=== PATIENT | male | born 1970 | race Caucasian/White ===

== ENCOUNTER 2016-09-02 00:39 | Inpatient (IN) | payer SELFPAY ==
[~2016-09-02] VITALS: Ht 167.6 cm; Wt 83.9 kg
[2016-09-02 01:17] LABS: Hematocrit 43.8 % (41.0-53.0); Hemoglobin 14.4 g/dL (13.5-17.5); Mean Platelet Volume 7.4 fL (7.4-10.4); Platelet Count (auto) 303 10^3/uL (140-450); Red Cell Distribution Width 13.5 % (11.6-16.0); SUSPECT VIEW TRANSMISSION; White Blood Cell 8.9 10^3/uL (4.4-10.8)
[2016-09-02 01:39] LABS: Calcium 9.1 mg/dL (8.5-10.1); Potassium 3.9 mmol/L (3.5-5.1)
[2016-09-02 01:42] LABS: Albumin 3.6 g/dL (3.4-5.0); BUN/Creatinine Ratio 11.2; Metamyelocytes % 0; Myelocytes % 0; Promyelocytes % 0; Reactive Lymphocytes 0
[2016-09-02 01:44] LABS: Bilirubin, Total 0.8 mg/dL (0.2-1.0); Total Protein 7.3 g/dL (6.4-8.2)
[2016-09-02 02:18] LABS: Platelet Estimate Adequate; RBC Morphology Normal
[2016-09-02] MEDS ORDERED: metroNIDAZOLE 500MG/100ML 100 ML IV ONE (06:00)
[2016-09-02] MEDS ORDERED: PIPERACILLIN-TAZOB 3.375GM 100 ML IV ONE (06:00)
[2016-09-02] MEDS ORDERED: SODIUM CHLORIDE 0.9% 1,000 ML IV ONE ×2 (06:00→06:30)
[2016-09-02] MEDS ORDERED: MORPHINE SULF INJ 2 MG/ML SYRINGE 1ML IV PRN (06:30)
[2016-09-02] MEDS ORDERED: ACETAMINOPHEN 325 MG TAB PO PRN (06:30)
[2016-09-02] MEDS ORDERED: NITROGLYCERIN 0.4 MG SL TAB SL PRN (06:30)
[2016-09-02 08:00] LABS: INR 1.04 (0.9-1.15); Partial Thromboplastin Time 27.5 sec (22.64-33.71); Prothrombin Time 11.3 sec (9.37-12.3)
[2016-09-02 08:14] LABS: Urine RBC None Seen /hpf (0 - 3)
[2016-09-02 08:40] LABS: Urine Bilirubin Negative (Negative); Urine Blood Negative /uL (Negative); Urine Color Yellow (Yellow); Urine Glucose Normal (Normal); Urine Ketone Negative (Negative); Urine Nitrite Negative (Negative); Urine Squamous Epithelial Cell FEW /hpf (<5); Urine Urobilinogen Normal (Negative)
[2016-09-02 09:00] VITALS: BP 144/66
[2016-09-02] MEDS: MORPHINE SULF INJ 2 MG/ML SYRINGE 1ML IV PRN ×2 (09:06→21:31)
[2016-09-02] MEDS: PANTOPRAZOLE SODIUM 40 MG/10 ML VIAL IV SCH (09:07)
[2016-09-02] MEDS: SODIUM CHLORIDE 0.9% 1,000 ML IV SCH ×3 (09:07→21:03)
[2016-09-02 09:42] VITALS: BP 114/66
[2016-09-02] MEDS: PIPERACILLIN-TAZOB 3.375GM 100 ML IV SCH ×3 (11:43→23:24)
[2016-09-02 13:00] VITALS: BP 117/66
[2016-09-02] MEDS: metroNIDAZOLE 500MG/100ML 100 ML IV SCH ×2 (14:00→21:31)
[2016-09-02] MEDS ORDERED: POVIDONE IODINE 10 % TOPICAL OINT 30GM TOP ONE (15:21)
[2016-09-02] MEDS ORDERED: SUCCINYLCHOLINE CHLORIDE 20 MG/ML 10ML VIAL IV ONE (15:32)
[2016-09-02] MEDS ORDERED: NEOSTIGMINE 1 MG/ML INJ (10mg/10ML VIAL) IV ONE (15:32)
[2016-09-02] MEDS ORDERED: GLYCOPYRROLATE 0.2 MG/ML 1ML VIAL IV ONE (15:32)
[2016-09-02] MEDS ORDERED: ROCURONIUM 10MG/ML 10ML VIAL IV ONE (15:38)
[2016-09-02] MEDS ORDERED: PROPOFOL 10 MG/ML 20 ML IV ONE (15:38)
[2016-09-02] MEDS ORDERED: fentaNYL CITRATE 5 ML ONE (15:38)
[2016-09-02] MEDS ORDERED: MIDAZOLAM HCL 1MG/1ML-2 ML VIAL ONE (15:38)
[2016-09-02] MEDS ORDERED: hydrALAZINE HCL 20 MG/ML VL IV PRN (17:15)
[2016-09-02] MEDS ORDERED: ONDANSETRON HCL 4 MG/2 ML VIAL IV ONE (17:15)
[2016-09-02] MEDS ORDERED: HYDROmorphone HCL 2 MG/ML VL IV PRN (17:15)
[2016-09-02] MEDS ORDERED: ePHEDrine SULFATE 50 MG/ML AMP IV PRN (17:15)
[2016-09-02 18:35] VITALS: BP 125/62
[2016-09-02 20:00] VITALS: BP 119/77
[2016-09-02 21:49] VITALS: BP 119/71
[2016-09-03] MEDS: MORPHINE SULF INJ 2 MG/ML SYRINGE 1ML IV PRN ×4 (04:04→20:15)
[2016-09-03] MEDS: metroNIDAZOLE 500MG/100ML 100 ML IV SCH (05:19)
[2016-09-03 05:33] VITALS: BP 115/69
[2016-09-03] MEDS: PIPERACILLIN-TAZOB 3.375GM 100 ML IV SCH ×3 (06:53→17:32)
[2016-09-03] MEDS: HYDROcodone-ACET 5/325MG TAB PO PRN ×2 (07:24→17:32)
[2016-09-03 08:01] LABS: Basophils # (auto) 0 uL; Basophils % (auto) 0.3 % (0.0-2.0); Eosinophils # (auto) 0 uL; Eosinophils % (auto) 0.3 % (0.0-7.0); Hematocrit 38.9 % (41.0-53.0); Hemoglobin 13.1 g/dL (13.5-17.5); Lymphocytes # (auto) 0.9 uL; Lymphocytes % (auto) 10.1 % (10.0-50.0); Mean Corpuscular Hemoglobin 33.5 pg (28.0-32.0); Mean Corpuscular Hgb Conc. 33.7 g/dL (32.0-36.0); Mean Corpuscular Volume 99.6 fL (80.0-100.0); Mean Platelet Volume 7.6 fL (7.4-10.4); Monocytes # (auto) 0.4 uL; Monocytes % (auto) 4.9 % (0.0-12.0); Neutrophils # (auto) 7.2 uL; Neutrophils % (auto) 84.4 % (37.0-80.0); Platelet Count (auto) 290 10^3/uL (140-450); Red Cell Distribution Width 14.6 % (11.6-16.0); White Blood Cell 8.6 10^3/uL (4.4-10.8)
[2016-09-03 08:52] VITALS: BP 126/77
[2016-09-03 08:53] LABS: Albumin 2.6 g/dL (3.4-5.0); BUN/Creatinine Ratio 10.6; Bilirubin, Total 1.3 mg/dL (0.2-1.0); Calcium 8.2 mg/dL (8.5-10.1); Potassium 3.7 mmol/L (3.5-5.1); Total Protein 6.3 g/dL (6.4-8.2)
[2016-09-03] MEDS: PANTOPRAZOLE SODIUM 40 MG/10 ML VIAL IV SCH (09:47)
[2016-09-03 12:47] VITALS: BP 124/69
[2016-09-03] MEDS: SODIUM CHLORIDE 0.9% 1,000 ML IV SCH ×2 (12:50→20:16)
[2016-09-03] MEDS ORDERED: NICOTINE 21MG/24 HR TOPICAL PATCH TD ONE (13:45)
[2016-09-03 17:00] VITALS: BP 117/69
[2016-09-03] MEDS: ONDANSETRON HCL 4 MG/2 ML VIAL IV PRN (20:16)
[2016-09-03 22:00] VITALS: BP 108/58
[2016-09-04] MEDS: PIPERACILLIN-TAZOB 3.375GM 100 ML IV SCH ×5 (00:16→23:27)
[2016-09-04] MEDS: MORPHINE SULF INJ 2 MG/ML SYRINGE 1ML IV PRN ×6 (00:16→21:18)
[2016-09-04] MEDS: ONDANSETRON HCL 4 MG/2 ML VIAL IV PRN ×3 (00:17→21:18)
[2016-09-04 05:34] VITALS: BP 123/66
[2016-09-04 07:43] LABS: Basophils # (auto) 0 uL; Basophils % (auto) 0.2 % (0.0-2.0); Eosinophils # (auto) 0 uL; Eosinophils % (auto) 0.5 % (0.0-7.0); Hematocrit 38.8 % (41.0-53.0); Hemoglobin 13.4 g/dL (13.5-17.5); Lymphocytes # (auto) 0.8 uL; Mean Corpuscular Hgb Conc. 34.5 g/dL (32.0-36.0); Mean Corpuscular Volume 98.5 fL (80.0-100.0); Mean Platelet Volume 7.5 fL (7.4-10.4); Monocytes # (auto) 0.7 uL; Monocytes % (auto) 7.1 % (0.0-12.0); Neutrophils # (auto) 7.7 uL; Neutrophils % (auto) 83.2 % (37.0-80.0); Platelet Count (auto) 316 10^3/uL (140-450); Red Cell Distribution Width 14.5 % (11.6-16.0); White Blood Cell 9.3 10^3/uL (4.4-10.8)
[2016-09-04 08:25] LABS: BUN/Creatinine Ratio 13.4; Calcium 8.8 mg/dL (8.5-10.1); Magnesium 2.1 mg/dL (1.6-2.6); Potassium 3.8 mmol/L (3.5-5.1)
[2016-09-04] MEDS: PANTOPRAZOLE SODIUM 40 MG/10 ML VIAL IV SCH (08:59)
[2016-09-04 09:00] VITALS: BP 141/74
[2016-09-04] MEDS: NICOTINE 21MG/24 HR TOPICAL PATCH TD SCH (09:01)
[2016-09-04] MEDS: SODIUM CHLORIDE 0.9% 1,000 ML IV SCH ×3 (09:02→21:18)
[2016-09-04 13:00] VITALS: BP 137/72
[2016-09-04 17:00] VITALS: BP 118/86
[2016-09-04 22:00] VITALS: BP 134/79
[2016-09-05] VITALS (7 sets, daily range): BP systolic 113–137; BP diastolic 67–76
[2016-09-05] MEDS: ONDANSETRON HCL 4 MG/2 ML VIAL IV PRN (04:50)
[2016-09-05] MEDS: MORPHINE SULF INJ 2 MG/ML SYRINGE 1ML IV PRN ×4 (04:50→20:16)
[2016-09-05] MEDS: PIPERACILLIN-TAZOB 3.375GM 100 ML IV SCH ×3 (05:41→17:17)
[2016-09-05] MEDS: PANTOPRAZOLE SODIUM 40 MG/10 ML VIAL IV SCH (09:17)
[2016-09-05] MEDS: NICOTINE 21MG/24 HR TOPICAL PATCH TD SCH (09:17)
[2016-09-05] MEDS: SODIUM CHLORIDE 0.9% 1,000 ML IV SCH (16:54)
[2016-09-05] MEDS: HYDROcodone-ACET 5/325MG TAB PO PRN (18:51)
[2016-09-06] MEDS: PIPERACILLIN-TAZOB 3.375GM 100 ML IV SCH ×5 (00:09→23:35)
[2016-09-06] MEDS: MORPHINE SULF INJ 2 MG/ML SYRINGE 1ML IV PRN ×4 (01:00→23:35)
[2016-09-06 04:51] VITALS: BP 126/68
[2016-09-06] MEDS: SODIUM CHLORIDE 0.9% 1,000 ML IV SCH ×2 (05:34→21:46)
[2016-09-06 06:54] LABS: Hematocrit 39.7 % (41.0-53.0); Hemoglobin 13.5 g/dL (13.5-17.5)
[2016-09-06 07:06] LABS: Calcium 9.3 mg/dL (8.5-10.1); Potassium 3.4 mmol/L (3.5-5.1)
[2016-09-06 07:15] LABS: BUN/Creatinine Ratio 13.7
[2016-09-06 08:00] VITALS: BP 133/75
[2016-09-06] MEDS: NICOTINE 21MG/24 HR TOPICAL PATCH TD SCH (10:00)
[2016-09-06] MEDS: PANTOPRAZOLE SODIUM 40 MG/10 ML VIAL IV SCH (10:39)
[2016-09-06 13:00] VITALS: BP_SYST 129; BP_SYST 133; BP_DIAS 75
[2016-09-06] MEDS ORDERED: POTASSIUM CHL 20 Meq TABLET PO ONE (15:15)
[2016-09-06 17:00] VITALS: BP 136/87
[2016-09-06] MEDS: HYDROcodone-ACET 5/325MG TAB PO PRN (17:59)
[2016-09-06 20:00] VITALS: BP 124/74
[2016-09-06 21:48] VITALS: BP 124/74
[2016-09-07 05:00] VITALS: BP 123/74
[2016-09-07] MEDS: PIPERACILLIN-TAZOB 3.375GM 100 ML IV SCH (06:19)
[2016-09-07 08:00] VITALS: BP 123/73
[2016-09-07 08:10] LABS: BUN/Creatinine Ratio 14.7; Calcium 8.5 mg/dL (8.5-10.1)
[2016-09-07 09:03] VITALS: BP 123/73
[2016-09-07] MEDS ORDERED: IOHEXOL 300 MG/ML 100ML BOTTLE IJ ONE (09:43)
[2016-09-07] MEDS: MORPHINE SULF INJ 2 MG/ML SYRINGE 1ML IV PRN (10:35)
[2016-09-07] MEDS: PANTOPRAZOLE SODIUM 40 MG/10 ML VIAL IV SCH (10:35)
[2016-09-07] MEDS: NICOTINE 21MG/24 HR TOPICAL PATCH TD SCH (10:35)
[2016-09-07] MEDS ORDERED: cefTRIAXone 1GM/50ML D5W 50 ML IV SCH (11:00)
[2016-09-07 12:10] VITALS: BP 117/71
[2016-09-07] MEDS: SODIUM CHLORIDE 0.9% 1,000 ML IV SCH (12:19)
[2016-09-07] MEDS ORDERED: LEVO500T21 PO (13:02)
[2016-09-07] MEDS ORDERED: METR500T PO (13:02)
[2016-09-07 16:57] VITALS: BP 120/78
== END 2016-09-07 18:30 | disposition home or self-care (01) | DRG 339 ==
LOC: ER 00:39 → EDBD 00:39 → TELE 00:40 → TELE-WESTW 08:30 → WEST WING 09-03 15:46
PROVIDERS: ADMIT Internal Medicine; ATTEND Internal Medicine
PROC: 0DTJ0ZZ Resection of Appendix, Open Approach (ICD-10-PCS; principal; 2016-09-02 15:32)
DX: K35.3 Acute appendicitis with localized peritonitis (principal); K56.7 Ileus, unspecified; F12.90 Cannabis use, unspecified, uncomplicated; F17.200 Nicotine dependence, unspecified, uncomplicated; K40.90 Unilateral inguinal hernia, without obstruction or gangrene, not specified as recurrent; F19.10 Other psychoactive substance abuse, uncomplicated; Z71.6 Tobacco abuse counseling
CPT/HCPCS: 36415; 71010; 74176; 74177; 80048; 80053; 80307; 81001; 82150; 83605; 83735; 85007; 85014; 85018; 85025; 85027; 85610; 85730; 86850; 86900; 86901; 87040; 87070; 87075; 87077; 87186; 87205; 93005; 96365; 96367; C9113; J0330; J0696; J2250; J2405; J2543; J2704; J3490

== ENCOUNTER 2018-02-16 14:34 | Emergency (ER) | payer MEDICAID, OTHER ==
[~2018-02-16] VITALS: Ht 172.7 cm; Wt 86.2 kg
[~2018-02-16 14:34] MED LIST: LEVO500T21 PO; METR500T PO
[2018-02-16 15:48] VITALS: BP 128/84
== END 2018-02-16 16:33 | disposition home or self-care (01) ==
LOC: ER 14:34
DX: D17.1 Benign lipomatous neoplasm of skin and subcutaneous tissue of trunk (principal); L08.9 Local infection of the skin and subcutaneous tissue, unspecified; F12.10 Cannabis abuse, uncomplicated; Z79.2 Long term (current) use of antibiotics